=== PATIENT | male | born 1970 ===

== ENCOUNTER → 2018-03-28 | Outpatient (REF) | payer MEDICARE, MEDICAID | LOC: M LAB REF 17:04 | DX: H61.23 Impacted cerumen, bilateral (principal); H73.12 Chronic myringitis, left ear | CPT/HCPCS: 87186 ==

== ENCOUNTER → 2019-02-12 | Outpatient (REF) | payer MEDICARE, MEDICAID | LOC: M LAB REF 13:36 | PROVIDERS: ATTEND Otolaryngology | DX: H61.23 Impacted cerumen, bilateral (principal); H73.12 Chronic myringitis, left ear ==